=== PATIENT | male | born 1960 | race Caucasian/White ===

== ENCOUNTER 2017-08-25 04:51 | Outpatient (CLI) | payer MEDICARE, OTHER ==
[~2017-08-25 04:51] MED LIST: ASPI-1265 PO; ATOR10TA87 PO; FENO160T10 PO; FISH1CAP15 PO; FLAX100015 PO; FURO-150 PO; INSU100V37 SQ; IRBE150T51 PO; MAGN400C PO; METO50TA7 PO; PIOG30TA10 PO; POTA99TA25 PO; RIVA20TA PO; UMEC62.5 INH; VERA120T PO; VICTOZA SQ
== END 2017-08-25 23:59 | disposition home or self-care (01) ==
LOC: DIABETIC 04:51
PROVIDERS: ATTEND Internal Medicine
DX: E11.65 Type 2 diabetes mellitus with hyperglycemia (principal); E66.9 Obesity, unspecified
CPT/HCPCS: G0108

== ENCOUNTER 2017-11-17 10:44 | Inpatient (IN) | payer MEDICARE, OTHER ==
[~2017-11-17] VITALS: Ht 167.6 cm; Wt 103.5 kg
[2017-11-17] MEDS ORDERED: normal saline 1000ML IV soln IVB ONE ×2 (10:50)
[2017-11-17 11:15] LABS: CLARITY,URINE CLEAR (Clear); COLOR,URINE STRAW (Yellow); GLUCOSE, URINE >=1000 mg/dl (Neg); KETONES,URINE >=80 mg/dl (Neg); LEUKOCYTE ESTERASE ,URINE NEGATIVE (Neg); NITRITES, URINE NEGATIVE (Neg); OCCULT BLOOD,URINE SMALL (Neg); PH,URINE 5.5 (4.8-8.0); PROTEIN,URINE NEGATIVE (Neg); UROBILINOGEN,URINE 0.2 E.U/dL (0.2-1.0)
[2017-11-17 11:17] LABS: UA COLLECTION TYPE VOIDED
[2017-11-17 11:18] LABS: BASOPHILS # (AUTO) 0.1 X10'3 (0-0.2); BASOPHILS % (AUTO) 0.9 % (0-1); EOSINOPHILS % (AUTO) 0.1 % (0-6); HEMATOCRIT 46.2 % (42.0-52.0); HEMOGLOBIN 15.1 g/dl (14.0-17.9); LYMPHOCYTES # (AUTO) 1.2 X10'3 (1.1-4.8); LYMPHOCYTES % (AUTO) 9.8 % (21-51); MEAN CORPUSCULAR HEMOGLOBIN 27.7 PG (27.0-31.0); MEAN CORPUSCULAR HGB CONC 32.7 % (33.0-36.5); MEAN CORPUSCULAR VOLUME 84.6 FL (78-98); MEAN PLATELET VOLUME 8.8 FL (7.4-10.4); MONOCYTES # (AUTO) 0.5 X10'3 (0-0.9); MONOCYTES % (AUTO) 4.2 % (2-12); NEUTROPHILS # (AUTO) 10.8 X10'3 (1.8-7.7); PLATELET COUNT 336 X10'3 (140-440); RED BLOOD COUNT 5.47 X10'6 (4.70-6.10); RED CELL DISTRIBUTION WIDTH 14.4 % (11.5-14.5); WHITE BLOOD COUNT 12.6 X10'3 (4.5-11.0)
[2017-11-17 11:24] LABS: ALANINE AMINOTRANSFERASE 26 U/L (12-78); ALBUMIN 3.2 G/DL (3.4-5.0); ALBUMIN/GLOBULIN RATIO 0.7 (1.1-1.5); ALKALINE PHOSPHATASE 71 IU/L (46-116); ANION GAP 24 (8-16); ASPARTATE AMINO TRANSFERASE 11 U/L (10-37); BILIRUBIN,TOTAL 0.6 MG/DL (0.1-1.0); BLOOD UREA NITROGEN 33 MG/DL (7-18); BUN/CREATININE RATIO 21.6 (5.4-32.0); CALCIUM 10.3 MG/DL (8.5-10.1); CHLORIDE 94 MMOL/L (99-107); CREATININE 1.53 MG/DL (0.60-1.10); GLUCOSE 430 MG/DL (70-104); POTASSIUM 4.5 MMOL/L (3.5-5.1); SODIUM 129 MMOL/L (135-145); TOTAL PROTEIN 7.7 G/DL (6.4-8.2); TROPONIN I < 0.04 NG/ML (0.0-0.05); eGFR 47 ML/MIN
[2017-11-17 11:25] LABS: BACTERIA,URINE NONE SEEN /HPF (Neg); SQUAMOUS EPITHELIAL CELL,UR NONE SEEN /LPF (FEW); WBC,URINE NONE SEEN /HPF (0-4)
[2017-11-17] MEDS ORDERED: insulin regular, human 10 units/0.1 ml syringe IV ONE (11:30)
[2017-11-17] MEDS ORDERED: insulin regular, human inj. 100 UNITS in normal saline 100ml IV soln 100 ML IV SCH ×2 (12:25)
[2017-11-17] MEDS ORDERED: dextrose 50%-water 50ml dispensing syringe IV PRN (12:25)
[2017-11-17 12:46] LABS: ABG BASE EXCESS -16.8 mmol/L (-2.0-3.0); ABG HCO3 8.5 mmol/L (22.0-26.0); ABG PCO2 (T) 20.8 mmHg (35.0-48.0); ABG PO2 (T) 106.7 mmHg (83-108); ALLEN'S TEST Positive; FCOHb 0.8 % (0.5-1.5); FMetHb 0.1 % (0.3-1.12); FO2Hb 96.1 % (94-100); RESPIRATORY RATE (OBSERVED) 20 b/min; TOTAL HEMOGLOBIN 14.8 G/dl (14.0-18.0)
[2017-11-17] MEDS ORDERED: insulin Lispro (HumaLOG) vial - multi-dose SQ SCH (13:00)
[2017-11-17] MEDS ORDERED: insulin regular, human 10 units/0.1 ml syringe SQ ONE (14:10)
[2017-11-17] MEDS ORDERED: magnesium Cl slow-release 64mg tablet PO PRN (14:30)
[2017-11-17] MEDS ORDERED: K and/or MAG REPLACEMENT MC SCH (14:30)
[2017-11-17] MEDS ORDERED: magnesium 4gm in 100ml NS 100 ML IV PRN (14:30)
[2017-11-17] MEDS ORDERED: sodium phosphate inj. 30 MMOL in dextrose 5%-water 250 ML IV PRN (14:30)
[2017-11-17] MEDS ORDERED: mag hydrox/Alum hydrox/simeth 30ml oral suspension PO PRN (14:30)
[2017-11-17] MEDS ORDERED: diphenhydrAMINE 25mg capsule PO PRN (14:30)
[2017-11-17] MEDS ORDERED: ondansetron/PF 4mg/2ml inj IV PRN (14:30)
[2017-11-17] MEDS ORDERED: sodium bicarbonate (8.4%) inj. 100 MEQ in sodium chloride 0.45% 500ml 500 ML IV PRN (14:30)
[2017-11-17] MEDS ORDERED: insulin regular, human 10 units/0.1 ml syringe SQ PRN (14:30)
[2017-11-17] MEDS ORDERED: potassium Cl 20 mEq SR tablet PO PRN ×3 (14:30)
[2017-11-17] MEDS ORDERED: sodium bicarbonate (8.4%) inj. 50 MEQ in sodium chloride 0.45% 500ml 250 ML IV PRN (14:30)
[2017-11-17] MEDS ORDERED: magnesium hydroxide 30ml (MOM) UD suspension PO PRN (14:30)
[2017-11-17] MEDS ORDERED: Neutra Phos packet PO PRN (14:30)
[2017-11-17] MEDS ORDERED: sodium phosphate inj. 15 MMOL in dextrose 5%-water 150 ML IV PRN (14:30)
[2017-11-17] MEDS ORDERED: magnesium 1gm/100ml D5W IVPB 100 ML IV PRN (14:30)
[2017-11-17] MEDS ORDERED: potassium Cl 40MEQ/NS 500ml 500 ML IV PRN ×4 (14:30)
[2017-11-17] MEDS ORDERED: potassium CL 20mEq in D5-1/2NS 1,000 ML IV PRN (14:30)
[2017-11-17] MEDS ORDERED: acetaminophen 325mg tablet PO PRN ×2 (14:30)
[2017-11-17] MEDS: normal saline 1000ml 1,000 ML IV SCH ×3 (14:53→22:30)
[2017-11-17] MEDS: insulin regular, DKA only 100 UNIT in normal saline 100ml IV soln 99 ML IV SCH ×2 (14:55)
[2017-11-17] MEDS: ipratropium/albuterol 3ml nebule NEB SCH ×2 (15:00→20:05)
[2017-11-17 15:16] LABS: ALBUMIN 2.9 G/DL (3.4-5.0); ANION GAP 19 (8-16); BLOOD UREA NITROGEN 30 MG/DL (7-18); BUN/CREATININE RATIO 21.9 (5.4-32.0); CALCIUM 9.8 MG/DL (8.5-10.1); CHLORIDE 100 MMOL/L (99-107); CREATININE 1.37 MG/DL (0.60-1.10); GLUCOSE 312 MG/DL (70-104); PHOSPHORUS 2.7 MG/DL (2.3-4.5); POTASSIUM 3.4 MMOL/L (3.5-5.1); SODIUM 134 MMOL/L (135-145); eGFR 53 ML/MIN
[2017-11-17 15:23] LABS: TOTAL CARBON DIOXIDE 14.8 MMOL/L (24-32)
[2017-11-17 16:20] VITALS: BP 112/56
[2017-11-17] MEDS: potassium CL 20mEq in D5-1/2NS 1,000 ML IV SCH ×2 (17:36→23:05)
[2017-11-17 19:15] LABS: ALBUMIN 2.9 G/DL (3.4-5.0); ANION GAP 16 (8-16); BLOOD UREA NITROGEN 26 MG/DL (7-18); BUN/CREATININE RATIO 19.4 (5.4-32.0); CALCIUM 9.2 MG/DL (8.5-10.1); CHLORIDE 103 MMOL/L (99-107); CREATININE 1.34 MG/DL (0.60-1.10); GLUCOSE 194 MG/DL (70-104); PHOSPHORUS 1.9 MG/DL (2.3-4.5); POTASSIUM 3.6 MMOL/L (3.5-5.1); SODIUM 137 MMOL/L (135-145); TOTAL CARBON DIOXIDE 17.8 MMOL/L (24-32); eGFR 55 ML/MIN
[2017-11-17 19:37] VITALS: BP 124/61
[2017-11-17] MEDS ORDERED: FLAXSEED OIL PO SCH (20:00)
[2017-11-17 20:41] LABS: ANION GAP 16 (8-16); BLOOD UREA NITROGEN 21 MG/DL (7-18); BUN/CREATININE RATIO 17.1 (5.4-32.0); CALCIUM 9.6 MG/DL (8.5-10.1); CHLORIDE 103 MMOL/L (99-107); CREATININE 1.23 MG/DL (0.60-1.10); GLUCOSE 174 MG/DL (70-104); POTASSIUM 3.5 MMOL/L (3.5-5.1); SODIUM 137 MMOL/L (135-145); TOTAL CARBON DIOXIDE 18.2 MMOL/L (24-32); eGFR 60 ML/MIN
[2017-11-17] MEDS: losartan 50mg tablet PO SCH (20:56)
[2017-11-17] MEDS: metoprolol succinate 25mg (24-HOUR) SR. Tablet PO SCH (20:56)
[2017-11-17] MEDS: rivaroxaban 20mg tablet PO SCH (20:56)
[2017-11-17 23:00] VITALS: BP 92/48
[2017-11-17 23:14] LABS: ALBUMIN 3.2 G/DL (3.4-5.0); ANION GAP 19 (8-16); BLOOD UREA NITROGEN 20 MG/DL (7-18); BUN/CREATININE RATIO 15.5 (5.4-32.0); CALCIUM 9.6 MG/DL (8.5-10.1); CHLORIDE 101 MMOL/L (99-107); CREATININE 1.29 MG/DL (0.60-1.10); GLUCOSE 171 MG/DL (70-104); PHOSPHORUS 1.3 MG/DL (2.3-4.5); POTASSIUM 3.3 MMOL/L (3.5-5.1); SODIUM 137 MMOL/L (135-145); TOTAL CARBON DIOXIDE 17.5 MMOL/L (24-32); eGFR 57 ML/MIN
[2017-11-18] MEDS ORDERED: insulin R INFUSION 1 ML IV ONE (00:51)
[2017-11-18] MEDS: insulin regular, DKA only 100 UNIT in normal saline 100ml IV soln 99 ML IV SCH ×2 (01:01)
[2017-11-18 01:58] LABS: ALBUMIN 2.9 G/DL (3.4-5.0); ANION GAP 15 (8-16); BLOOD UREA NITROGEN 18 MG/DL (7-18); BUN/CREATININE RATIO 14.8 (5.4-32.0); CALCIUM 9.5 MG/DL (8.5-10.1); CHLORIDE 102 MMOL/L (99-107); CREATININE 1.22 MG/DL (0.60-1.10); GLUCOSE 161 MG/DL (70-104); POTASSIUM 3.4 MMOL/L (3.5-5.1); SODIUM 136 MMOL/L (135-145); TOTAL CARBON DIOXIDE 18.6 MMOL/L (24-32); eGFR 61 ML/MIN
[2017-11-18] MEDS: normal saline 1000ml 1,000 ML IV SCH ×4 (02:30→15:25)
[2017-11-18] MEDS: K and/or MAG REPLACEMENT MC SCH ×2 (02:41→08:00)
[2017-11-18 03:00] VITALS: BP 109/48
[2017-11-18] MEDS: ipratropium/albuterol 3ml nebule NEB SCH ×4 (03:49→20:31)
[2017-11-18 05:20] LABS: BASOPHILS % (AUTO) 0.4 % (0-1); EOSINOPHILS # (AUTO) 0.2 X10'3 (0-0.9); EOSINOPHILS % (AUTO) 2.8 % (0-6); HEMATOCRIT 41.1 % (42.0-52.0); HEMOGLOBIN 13.9 g/dl (14.0-17.9); LYMPHOCYTES # (AUTO) 1.7 X10'3 (1.1-4.8); LYMPHOCYTES % (AUTO) 24.1 % (21-51); MEAN CORPUSCULAR HEMOGLOBIN 28.4 PG (27.0-31.0); MEAN CORPUSCULAR HGB CONC 33.8 % (33.0-36.5); MEAN PLATELET VOLUME 8.5 FL (7.4-10.4); MONOCYTES # (AUTO) 0.4 X10'3 (0-0.9); MONOCYTES % (AUTO) 5.1 % (2-12); NEUTROPHILS # (AUTO) 4.8 X10'3 (1.8-7.7); NEUTROPHILS % (AUTO) 67.6 % (42-75); PLATELET COUNT 215 X10'3 (140-440); RED CELL DISTRIBUTION WIDTH 14.9 % (11.5-14.5); WHITE BLOOD COUNT 7.2 X10'3 (4.5-11.0)
[2017-11-18] MEDS: potassium CL 20mEq in D5-1/2NS 1,000 ML IV SCH (05:59)
[2017-11-18 06:00] VITALS: BP 91/58
[2017-11-18 06:08] LABS: ALANINE AMINOTRANSFERASE 19 U/L (12-78); ALBUMIN 2.7 G/DL (3.4-5.0); ALBUMIN/GLOBULIN RATIO 0.7 (1.1-1.5); ALKALINE PHOSPHATASE 52 IU/L (46-116); ANION GAP 15 (8-16); ASPARTATE AMINO TRANSFERASE 11 U/L (10-37); BILIRUBIN,TOTAL 0.5 MG/DL (0.1-1.0); BLOOD UREA NITROGEN 16 MG/DL (7-18); BUN/CREATININE RATIO 12.7 (5.4-32.0); CALCIUM 8.9 MG/DL (8.5-10.1); CHLORIDE 103 MMOL/L (99-107); CREATININE 1.26 MG/DL (0.60-1.10); GLUCOSE 166 MG/DL (70-104); MAGNESIUM 1.8 MG/DL (1.5-2.4); POTASSIUM 3.1 MMOL/L (3.5-5.1); SODIUM 138 MMOL/L (135-145); TOTAL CARBON DIOXIDE 19.7 MMOL/L (24-32); TOTAL PROTEIN 6.5 G/DL (6.4-8.2); eGFR 59 ML/MIN
[2017-11-18 06:15] LABS: PHOSPHORUS 1.2 MG/DL (2.3-4.5)
[2017-11-18] MEDS: atorvastatin 10mg tablet PO SCH (07:50)
[2017-11-18] MEDS: metoprolol succinate 25mg (24-HOUR) SR. Tablet PO SCH ×2 (07:50→19:34)
[2017-11-18] MEDS: aspirin 81mg tab.chew PO SCH (07:50)
[2017-11-18] MEDS: fenofibrate 145mg tablet PO SCH (07:50)
[2017-11-18] MEDS: furosemide 20MG tablet PO SCH (07:53)
[2017-11-18] MEDS: magnesium oxide 400mg tablet PO SCH (07:53)
[2017-11-18] MEDS: losartan 50mg tablet PO SCH ×2 (07:54→19:33)
[2017-11-18] MEDS: verapamil SR 120mg (sust. release) tab PO SCH (07:54)
[2017-11-18] MEDS ORDERED: potassium phosphate inj 30 MMOL in normal saline 500ml IV soln 490 ML IV ONE (09:25)
[2017-11-18 09:41] LABS: ALANINE AMINOTRANSFERASE 18 U/L (12-78); ALBUMIN 2.8 G/DL (3.4-5.0); ALBUMIN/GLOBULIN RATIO 0.7 (1.1-1.5); ALKALINE PHOSPHATASE 55 IU/L (46-116); ANION GAP 16 (8-16); ASPARTATE AMINO TRANSFERASE 13 U/L (10-37); BILIRUBIN,TOTAL 0.4 MG/DL (0.1-1.0); BLOOD UREA NITROGEN 12 MG/DL (7-18); BUN/CREATININE RATIO 10.5 (5.4-32.0); CALCIUM 8.7 MG/DL (8.5-10.1); CHLORIDE 102 MMOL/L (99-107); CREATININE 1.14 MG/DL (0.60-1.10); GLUCOSE 190 MG/DL (70-104); POTASSIUM 3.2 MMOL/L (3.5-5.1); SODIUM 137 MMOL/L (135-145); TOTAL CARBON DIOXIDE 19.3 MMOL/L (24-32); TOTAL PROTEIN 6.6 G/DL (6.4-8.2); eGFR 66 ML/MIN
[2017-11-18] MEDS ORDERED: glucagon, human recombinant 1mg kit SUBCUT PRN (10:25)
[2017-11-18] MEDS ORDERED: dextrose ORAL solution 15 GM/59 ML bottle PO PRN ×2 (10:25)
[2017-11-18] MEDS ORDERED: dextrose 50%-water 50ml dispensing syringe IV PRN ×2 (10:25)
[2017-11-18] MEDS ORDERED: MESSAGE TO PHARMACY PO ONE (10:25)
[2017-11-18] MEDS ORDERED: sodium phosphate inj. 30 MMOL in dextrose 5%-water 240 ML IV ONE (10:35)
[2017-11-18 11:00] VITALS: BP 101/46
[2017-11-18] MEDS: insulin Lispro (HumaLOG) vial - multi-dose SQ SCH ×4 (11:07→21:50)
[2017-11-18 15:00] VITALS: BP 108/57
[2017-11-18 19:00] VITALS: BP 125/49
[2017-11-18] MEDS ORDERED: ciprofloxacin lact 400MG/200ML 200 ML IV ONE (20:35)
[2017-11-18] MEDS ORDERED: insulin glargine (Lantus) pen - multi-dose SQ SCH (21:00)
[2017-11-18] MEDS: rivaroxaban 20mg tablet PO SCH (21:31)
[2017-11-18 23:00] VITALS: BP 121/56
[2017-11-18] MEDS ORDERED: iohexol 300mg/ml 100ml inj. ONE (23:28)
[2017-11-19] MEDS: metroNIDAZOLE-Flagyl 500mg/NS 100 ML IV SCH ×2 (00:29→07:17)
[2017-11-19 01:40] LABS: BASOPHILS % (AUTO) 0.8 % (0-1); EOSINOPHILS # (AUTO) 0.3 X10'3 (0-0.9); EOSINOPHILS % (AUTO) 5.3 % (0-6); HEMATOCRIT 40.8 % (42.0-52.0); HEMOGLOBIN 13.3 g/dl (14.0-17.9); LYMPHOCYTES # (AUTO) 2.1 X10'3 (1.1-4.8); MEAN CORPUSCULAR HEMOGLOBIN 27.2 PG (27.0-31.0); MEAN CORPUSCULAR HGB CONC 32.7 % (33.0-36.5); MEAN CORPUSCULAR VOLUME 83.3 FL (78-98); MEAN PLATELET VOLUME 8.7 FL (7.4-10.4); MONOCYTES # (AUTO) 0.4 X10'3 (0-0.9); MONOCYTES % (AUTO) 6.8 % (2-12); NEUTROPHILS # (AUTO) 3.4 X10'3 (1.8-7.7); NEUTROPHILS % (AUTO) 53.1 % (42-75); PLATELET COUNT 220 X10'3 (140-440); RED CELL DISTRIBUTION WIDTH 14.2 % (11.5-14.5); WHITE BLOOD COUNT 6.2 X10'3 (4.5-11.0)
[2017-11-19 01:54] LABS: ALANINE AMINOTRANSFERASE 18 U/L (12-78); ALBUMIN 2.6 G/DL (3.4-5.0); ALBUMIN/GLOBULIN RATIO 0.7 (1.1-1.5); ALKALINE PHOSPHATASE 91 IU/L (46-116); ANION GAP 16 (8-16); ASPARTATE AMINO TRANSFERASE 13 U/L (10-37); BILIRUBIN,TOTAL 0.3 MG/DL (0.1-1.0); BLOOD UREA NITROGEN 12 MG/DL (7-18); BUN/CREATININE RATIO 11.1 (5.4-32.0); CHLORIDE 100 MMOL/L (99-107); CREATININE 1.08 MG/DL (0.60-1.10); GLUCOSE 273 MG/DL (70-104); LIPASE 998 U/L (73-393); MAGNESIUM 1.7 MG/DL (1.5-2.4); PHOSPHORUS 2.8 MG/DL (2.3-4.5); POTASSIUM 3.2 MMOL/L (3.5-5.1); SODIUM 136 MMOL/L (135-145); TOTAL CARBON DIOXIDE 19.8 MMOL/L (24-32); TOTAL PROTEIN 6.3 G/DL (6.4-8.2); TRIGLYCERIDES 444 MG/DL (20-135); eGFR 70 ML/MIN
[2017-11-19 03:00] VITALS: BP 138/66
[2017-11-19] MEDS: potassium Cl 20 mEq SR tablet PO PRN ×3 (03:35→11:46)
[2017-11-19] MEDS: ipratropium/albuterol 3ml nebule NEB SCH ×4 (03:44→20:47)
[2017-11-19] MEDS: normal saline 1000ml 1,000 ML IV SCH (04:05)
[2017-11-19 07:06] VITALS: BP 106/53
[2017-11-19] MEDS: verapamil SR 120mg (sust. release) tab PO SCH (07:18)
[2017-11-19] MEDS: atorvastatin 10mg tablet PO SCH (07:19)
[2017-11-19] MEDS: aspirin 81mg tab.chew PO SCH (07:19)
[2017-11-19] MEDS: metoprolol succinate 25mg (24-HOUR) SR. Tablet PO SCH ×2 (07:19→20:00)
[2017-11-19] MEDS: furosemide 20MG tablet PO SCH (07:21)
[2017-11-19] MEDS: magnesium oxide 400mg tablet PO SCH (07:21)
[2017-11-19] MEDS: losartan 50mg tablet PO SCH ×2 (07:22→20:00)
[2017-11-19] MEDS: fenofibrate 145mg tablet PO SCH (07:22)
[2017-11-19] MEDS: K and/or MAG REPLACEMENT MC SCH (08:00)
[2017-11-19] MEDS ORDERED: ciprofloxacin lact 400MG/200ML 200 ML IV SCH (08:00)
[2017-11-19] MEDS: insulin Lispro (HumaLOG) vial - multi-dose SQ SCH ×2 (08:34→12:38)
[2017-11-19] MEDS: docusate sod 100mg capsule PO SCH ×2 (10:20→19:57)
[2017-11-19] MEDS ORDERED: morphine 2 MG/ML inj. syringe IV PRN (10:20)
[2017-11-19 11:00] VITALS: BP 127/59
[2017-11-19] MEDS: Potassium Cl inj 20 MEQ in normal saline 1000ml 990 ML IV SCH ×2 (11:52→21:00)
[2017-11-19 15:00] VITALS: BP 131/56
[2017-11-19 19:00] VITALS: BP 107/63
[2017-11-19] MEDS: rivaroxaban 20mg tablet PO SCH (20:00)
[2017-11-19] MEDS ORDERED: insulin glargine (Lantus) pen - multi-dose SQ SCH (21:00)
[2017-11-19 23:00] VITALS: BP 108/56
[2017-11-20 02:47] VITALS: BP 98/51
[2017-11-20] MEDS: ipratropium/albuterol 3ml nebule NEB SCH ×2 (03:00→10:18)
[2017-11-20 07:00] VITALS: BP 106/53
[2017-11-20] MEDS: aspirin 81mg tab.chew PO SCH (07:14)
[2017-11-20] MEDS: furosemide 20MG tablet PO SCH (07:15)
[2017-11-20] MEDS: metoprolol succinate 25mg (24-HOUR) SR. Tablet PO SCH (07:15)
[2017-11-20] MEDS: losartan 50mg tablet PO SCH (07:15)
[2017-11-20] MEDS: magnesium oxide 400mg tablet PO SCH (07:15)
[2017-11-20] MEDS: docusate sod 100mg capsule PO SCH (07:15)
[2017-11-20] MEDS: fenofibrate 145mg tablet PO SCH (07:16)
[2017-11-20] MEDS: atorvastatin 10mg tablet PO SCH (07:16)
[2017-11-20] MEDS: verapamil SR 120mg (sust. release) tab PO SCH (07:17)
[2017-11-20] MEDS: Potassium Cl inj 20 MEQ in normal saline 1000ml 990 ML IV SCH (07:21)
[2017-11-20] MEDS: K and/or MAG REPLACEMENT MC SCH (08:00)
[2017-11-20 09:27] LABS: ALANINE AMINOTRANSFERASE 25 U/L (12-78); ALBUMIN 3.2 G/DL (3.4-5.0); ALBUMIN/GLOBULIN RATIO 0.7 (1.1-1.5); ALKALINE PHOSPHATASE 64 IU/L (46-116); ANION GAP 18 (8-16); ASPARTATE AMINO TRANSFERASE 21 U/L (10-37); BILIRUBIN,TOTAL 0.4 MG/DL (0.1-1.0); BLOOD UREA NITROGEN 11 MG/DL (7-18); BUN/CREATININE RATIO 10.3 (5.4-32.0); CALCIUM 9.5 MG/DL (8.5-10.1); CHLORIDE 103 MMOL/L (99-107); CHOL/HDL RATIO 4.5 (0.00-4.99); CHOLESTEROL 183 MG/DL (0-200); CREATININE 1.07 MG/DL (0.60-1.10); GLUCOSE 195 MG/DL (70-104); HDL CHOLESTEROL 41 MG/DL (35-60); LDL CHOLESTEROL 109 MG/DL (50-100); LIPASE 804 U/L (73-393); MAGNESIUM 1.9 MG/DL (1.5-2.4); POTASSIUM 4.1 MMOL/L (3.5-5.1); SODIUM 142 MMOL/L (135-145); TOTAL PROTEIN 7.7 G/DL (6.4-8.2); TRIGLYCERIDES 213 MG/DL (20-135); eGFR 71 ML/MIN
[2017-11-20 11:00] VITALS: BP 120/57
[2017-11-20 11:13] LABS: BASOPHILS # (AUTO) 0.1 X10'3 (0-0.2); EOSINOPHILS # (AUTO) 0.3 X10'3 (0-0.9); EOSINOPHILS % (AUTO) 4.6 % (0-6); HEMATOCRIT 44.7 % (42.0-52.0); HEMOGLOBIN 14.9 g/dl (14.0-17.9); LYMPHOCYTES # (AUTO) 2.1 X10'3 (1.1-4.8); LYMPHOCYTES % (AUTO) 38.7 % (21-51); MEAN CORPUSCULAR HEMOGLOBIN 28.1 PG (27.0-31.0); MEAN CORPUSCULAR HGB CONC 33.3 % (33.0-36.5); MEAN CORPUSCULAR VOLUME 84.3 FL (78-98); MEAN PLATELET VOLUME 9.2 FL (7.4-10.4); MONOCYTES # (AUTO) 0.3 X10'3 (0-0.9); NEUTROPHILS # (AUTO) 2.7 X10'3 (1.8-7.7); NEUTROPHILS % (AUTO) 49.7 % (42-75); PLATELET COUNT 266 X10'3 (140-440); RED CELL DISTRIBUTION WIDTH 15.5 % (11.5-14.5); WHITE BLOOD COUNT 5.5 X10'3 (4.5-11.0)
[2017-11-20] MEDS: insulin Lispro (HumaLOG) vial - multi-dose SQ SCH (13:15)
[2017-11-20] MEDS ORDERED: LANTUS SQ (13:34)
[2017-11-20] MEDS ORDERED: INSU100V11 SQ (13:34)
== END 2017-11-20 15:25 | disposition home or self-care (01) | DRG 682 ==
LOC: ER 10:45 → ED HOLD 14:20 → PCU 3S 16:19
PROVIDERS: ADMIT Family Medicine; ATTEND Internal Medicine
PROC: BW211ZZ Computerized Tomography (CT Scan) of Abdomen and Pelvis using Low Osmolar Contrast (ICD-10-PCS; principal; 2017-11-18)
DX: N17.9 Acute kidney failure, unspecified (principal); E11.10 Type 2 diabetes mellitus with ketoacidosis without coma; K85.90 Acute pancreatitis without necrosis or infection, unspecified; E87.1 Hypo-osmolality and hyponatremia; I48.91 Unspecified atrial fibrillation; E66.9 Obesity, unspecified; E78.5 Hyperlipidemia, unspecified; E86.0 Dehydration; I10 Essential (primary) hypertension; E83.39 Other disorders of phosphorus metabolism; K57.90 Diverticulosis of intestine, part unspecified, without perforation or abscess without bleeding; I25.10 Atherosclerotic heart disease of native coronary artery without angina pectoris; K59.00 Constipation, unspecified; E87.6 Hypokalemia; Z96.643 Presence of artificial hip joint, bilateral; Z89.519 Acquired absence of unspecified leg below knee; Z91.14 Patient's other noncompliance with medication regimen; Z91.19 Patient's noncompliance with other medical treatment and regimen; Z95.5 Presence of coronary angioplasty implant and graft; Z98.42 Cataract extraction status, left eye; Z98.41 Cataract extraction status, right eye; Z88.5 Allergy status to narcotic agent; Z91.010 Allergy to peanuts; Z88.8 Allergy status to other drugs, medicaments and biological substances; Z91.018 Allergy to other foods; Z79.899 Other long term (current) drug therapy; Z79.4 Long term (current) use of insulin; Z85.820 Personal history of malignant melanoma of skin; Z81.1 Family history of alcohol abuse and dependence; Z82.49 Family history of ischemic heart disease and other diseases of the circulatory system; Z80.0 Family history of malignant neoplasm of digestive organs; Z68.36 Body mass index [BMI] 36.0-36.9, adult
CPT/HCPCS: 36415; 36600; 71045; 71046; 74178; 80048; 80053; 80061; 81001; 82803; 82948; 83036; 83690; 83735; 84100; 84478; 84484; 85018; 85025; 87070; 93005; 94640; 94760; 96361; 96372; 96374; 96376; 99285; J0744; J1815; J3480; J3490; J7030; J7060; Q9967

== ENCOUNTER 2017-12-08 02:06 | Outpatient (CLI) | payer MEDICARE, OTHER ==
[~2017-12-08 02:06] MED LIST changes: -FISH1CAP15 PO; +INSU100V11 SQ; -INSU100V37 SQ; +LANTUS SQ; -PIOG30TA10 PO; -VICTOZA SQ
== END 2017-12-08 23:59 | disposition home or self-care (01) ==
LOC: DIABETIC 02:06
PROVIDERS: ATTEND Internal Medicine
DX: E11.9 Type 2 diabetes mellitus without complications (principal); E66.9 Obesity, unspecified; I10 Essential (primary) hypertension; K85.90 Acute pancreatitis without necrosis or infection, unspecified; F10.10 Alcohol abuse, uncomplicated; Z79.82 Long term (current) use of aspirin; Z79.899 Other long term (current) drug therapy; Z96.643 Presence of artificial hip joint, bilateral
CPT/HCPCS: G0108

== ENCOUNTER 2018-05-18 05:10 | Outpatient (CLI) | payer MEDICARE, OTHER | END 2018-05-18 23:59 | disposition home or self-care (01) | LOC: DIABETIC 05:10 | PROVIDERS: ATTEND Specialist | DX: Z71.3 Dietary counseling and surveillance (principal); E11.9 Type 2 diabetes mellitus without complications | CPT/HCPCS: G0108 ==

== ENCOUNTER 2018-08-18 00:56 | Outpatient (CLI) | payer MEDICARE, OTHER | END 2018-08-18 23:59 | disposition home or self-care (01) | LOC: DIABETIC 00:56 | PROVIDERS: ATTEND Specialist | DX: E11.65 Type 2 diabetes mellitus with hyperglycemia (principal); I25.2 Old myocardial infarction; I10 Essential (primary) hypertension; E11.9 Type 2 diabetes mellitus without complications; Z96.643 Presence of artificial hip joint, bilateral; Z91.010 Allergy to peanuts; Z91.018 Allergy to other foods; Z88.8 Allergy status to other drugs, medicaments and biological substances; Z79.4 Long term (current) use of insulin | CPT/HCPCS: G0108 ==

== ENCOUNTER 2018-11-17 01:02 | Outpatient (CLI) | payer MEDICARE, OTHER | END 2018-11-17 23:59 | disposition home or self-care (01) | LOC: DIABETIC 01:02 | PROVIDERS: ATTEND Specialist | DX: E11.9 Type 2 diabetes mellitus without complications (principal); Z71.3 Dietary counseling and surveillance | CPT/HCPCS: G0108 ==

== ENCOUNTER 2018-12-21 03:50 | Outpatient (CLI) | payer MEDICARE, OTHER | END 2018-12-21 23:59 | disposition home or self-care (01) | LOC: DIABETIC 03:50 | PROVIDERS: ATTEND Internal Medicine Cardiovascular Disease | DX: E11.65 Type 2 diabetes mellitus with hyperglycemia (principal); I10 Essential (primary) hypertension; Z79.82 Long term (current) use of aspirin; Z79.02 Long term (current) use of antithrombotics/antiplatelets; Z79.899 Other long term (current) drug therapy; Z79.84 Long term (current) use of oral hypoglycemic drugs | CPT/HCPCS: G0108 ==

== ENCOUNTER 2019-03-22 04:10 | Outpatient (CLI) | payer MEDICARE, OTHER | END 2019-03-22 23:59 | disposition home or self-care (01) | LOC: DIABETIC 04:10 | PROVIDERS: ATTEND Internal Medicine Cardiovascular Disease | DX: E11.65 Type 2 diabetes mellitus with hyperglycemia (principal); I10 Essential (primary) hypertension; Z79.899 Other long term (current) drug therapy; Z79.4 Long term (current) use of insulin; Z95.5 Presence of coronary angioplasty implant and graft | CPT/HCPCS: G0108 ==

== ENCOUNTER 2019-06-21 00:32 | Outpatient (CLI) | payer MEDICARE, OTHER | END 2019-06-21 23:59 | disposition home or self-care (01) | LOC: DIABETIC 00:32 | PROVIDERS: ATTEND Internal Medicine Cardiovascular Disease | DX: E11.65 Type 2 diabetes mellitus with hyperglycemia (principal) | CPT/HCPCS: G0108 ==

== ENCOUNTER 2020-03-21 05:45 | Day surgery (SDC) | payer MEDICARE, OTHER ==
[2020-03-20 12:23] LABS: BASOPHILS # (AUTO) 0.1 X10'3 (0-0.2); BASOPHILS % (AUTO) 1.1 % (0-1); EOSINOPHILS # (AUTO) 0.3 X10'3 (0-0.9); EOSINOPHILS % (AUTO) 3.5 % (0-6); HEMATOCRIT 44.4 % (42.0-52.0); HEMOGLOBIN 14.7 g/dl (14.0-17.9); LYMPHOCYTES # (AUTO) 2.3 X10'3 (1.1-4.8); LYMPHOCYTES % (AUTO) 25.3 % (21-51); MEAN CORPUSCULAR HEMOGLOBIN 28.6 PG (27.0-31.0); MEAN CORPUSCULAR HGB CONC 33.2 g/dL (33.0-36.5); MEAN CORPUSCULAR VOLUME 86.1 FL (78-98); MEAN PLATELET VOLUME 8.4 FL (7.4-10.4); MONOCYTES # (AUTO) 0.7 X10'3 (0-0.9); MONOCYTES % (AUTO) 8.3 % (2-12); NEUTROPHILS # (AUTO) 5.6 X10'3 (1.8-7.7); NEUTROPHILS % (AUTO) 61.8 % (42-75); PLATELET COUNT 340 X10'3 (140-440); RED BLOOD COUNT 5.15 X10'6 (4.70-6.10); RED CELL DISTRIBUTION WIDTH 15.1 % (11.5-14.5); WHITE BLOOD COUNT 9.1 X10'3 (4.5-11.0)
[2020-03-20 12:30] LABS: ALBUMIN 4.1 G/DL (3.4-5.0); ANION GAP 12 (8-16); BLOOD UREA NITROGEN 22 MG/DL (7-18); BUN/CREATININE RATIO 23.9 (5.4-32.0); CALCIUM 9.7 MG/DL (8.5-10.1); CHLORIDE 103 MMOL/L (99-107); CREATININE 0.92 MG/DL (0.60-1.10); GLUCOSE 215 MG/DL (70-104); POTASSIUM 4.2 MMOL/L (3.5-5.1); SODIUM 141 MMOL/L (135-145); TOTAL CARBON DIOXIDE 26.5 MMOL/L (24-32); eGFR 84 ML/MIN
[2020-03-20 12:33] LABS: PARTIAL THROMBOPLASTIN TIME 25 SECONDS (22-32)
[~2020-03-21] VITALS: Ht 167.6 cm; Wt 126.5 kg
[2020-03-21] VITALS (14 sets, daily range): BP systolic 116–158; BP diastolic 48–101
[2020-03-21] MEDS ORDERED: LORazepam 0.5 MG tablet PO PRN (06:00)
[2020-03-21] MEDS ORDERED: diphenhydrAMINE 25mg capsule PO PRN (06:00)
[2020-03-21] MEDS ORDERED: LIDOcaine/PRILOcaine 5gm cream TP ONE (06:00)
[2020-03-21] MEDS ORDERED: normal saline 1,000 ML IV SCH (06:00)
[2020-03-21] MEDS ORDERED: INSU100V13 SQ (06:27)
[2020-03-21] MEDS ORDERED: EMPA25TA PO (06:27)
[2020-03-21] MEDS ORDERED: FURO40TA4 PO (06:27)
[2020-03-21] MEDS ORDERED: FENO145T38 PO (06:27)
[2020-03-21] MEDS ORDERED: MAGN250T2 PO (06:27)
[2020-03-21] MEDS ORDERED: NIA500ERT PO (06:27)
[2020-03-21] MEDS ORDERED: ALIR75PE SQ (06:27)
[2020-03-21] MEDS ORDERED: LOSA50TA3 PO (06:27)
[2020-03-21] MEDS ORDERED: INSU100V41 (06:27)
[2020-03-21] MEDS ORDERED: verapamil 2.5 mg/ml inj IV ONE (07:26)
[2020-03-21] MEDS ORDERED: midazolam 2 mg/2 ml injection ONE ×2 (07:27→09:00)
[2020-03-21] MEDS ORDERED: LIDOcaine 1% (10mg/ml)w/preservative injection 20ml MDV ONE (07:27)
[2020-03-21] MEDS ORDERED: iohexol 350MG/ML 100ml bottle IV ONE (07:27)
[2020-03-21] MEDS ORDERED: heparin 1,000unit/ml 10ml vial 10 ML ONE ×2 (07:27→09:41)
[2020-03-21] MEDS ORDERED: nitroGLYCERIN-Tridil 50MG/D5W 250 ML IV ONE (07:27)
[2020-03-21] MEDS ORDERED: fentaNYL/PF 50MCG/1 ML 2ML syringe ONE (07:27)
[2020-03-21] MEDS ORDERED: iohexol 350 MG/ML 50ML vial IV ONE (07:27)
[2020-03-21 08:41] LABS: ISTAT HGB ART 13.9 g/dl (14.0-18.0); ISTAT Hct ART 41 %PCV (42-52); ISTAT O2 SATURATION ARTERIAL 97 % (95-98); ISTAT SOURCE ART
[2020-03-21] MEDS ORDERED: heparin 25,000 UNIT/250ml bag 250 ML IV ONE (08:47)
[2020-03-21] MEDS ORDERED: iohexol 350 MG/1 ML 200ml bottle ONE (08:48)
[2020-03-21] MEDS ORDERED: heparin 1,000 UNITS/NS 500ml 500 ML ONE (09:18)
[2020-03-21] MEDS ORDERED: HYDROmorphone 1 mg/ml syringe ONE (09:37)
[2020-03-21] MEDS ORDERED: clopidogrel 300mg tablet ONE (09:55)
[2020-03-21] MEDS ORDERED: normal saline 1000ml 1,000 ML IV SCH (10:45)
--- NOTE | 2020-03-21 14:30 | NUR ---
RECEIVED REPORT AND PT FROM JAYLEEN RN, PT VASCULAR BAND OFF AND DRSG ALREADY APPLIED, PT RESTING AND AWAITING D/C HOME. VS AND SITE REMAIN STABLE. Addendum: 03/21/20 at 1632 by Bre Zhang RN Amended: Links added.
== END 2020-03-21 18:45 | disposition home or self-care (01) ==
LOC: SSTAY O 05:45
PROVIDERS: ATTEND Internal Medicine Cardiovascular Disease
DX: R94.39 Abnormal result of other cardiovascular function study (principal); R07.89 Other chest pain; I25.10 Atherosclerotic heart disease of native coronary artery without angina pectoris; E11.9 Type 2 diabetes mellitus without complications; E78.5 Hyperlipidemia, unspecified; I11.0 Hypertensive heart disease with heart failure; I50.9 Heart failure, unspecified; I49.5 Sick sinus syndrome; I48.91 Unspecified atrial fibrillation; G47.30 Sleep apnea, unspecified; Z95.5 Presence of coronary angioplasty implant and graft; Z79.899 Other long term (current) drug therapy; Z79.01 Long term (current) use of anticoagulants
CPT/HCPCS: 36415; 80048; 82803; 85014; 85025; 85347; 85610; 85730; 93005; 93460; 99152; 99153; C1725; C1751; C1769; C1874; C1894; C9600; J1170; J1644; J2001; J2250; J3010; J7030; Q0163; Q9967; A4620; A5120; J3490

== ENCOUNTER 2021-09-17 10:06 | Outpatient (CLI) | payer MEDICARE, OTHER, MEDICAID ==
[~2021-09-17 10:06] MED LIST changes: +ALIR75PE5 SQ; -ATOR10TA87 PO; +EMPA25TA PO; +FENO145T38 PO; -FENO160T10 PO; -FLAX100015 PO; -FURO-150 PO; +FURO40TA4 PO; -INSU100V11 SQ; +INSU100V13 SQ; +INSU100V41; -IRBE150T51 PO; -LANTUS SQ; +LOSA50TA3 PO; +MAGN250T35 PO; -MAGN400C PO; +NIA500ERT PO
[2021-09-17 11:14] LABS: HEMOGLOBIN A1C 7.3 % (4.5-6.2)
[2021-09-17 11:24] LABS: ALANINE AMINOTRANSFERASE 54 U/L (12-78); ALBUMIN 3.7 G/DL (3.4-5.0); ALBUMIN/GLOBULIN RATIO 0.8 (1.1-1.5); ALKALINE PHOSPHATASE 50 IU/L (46-116); ANION GAP 11 (8-16); ASPARTATE AMINO TRANSFERASE 38 U/L (10-37); BILIRUBIN,TOTAL 0.4 MG/DL (0.1-1.0); BLOOD UREA NITROGEN 22 MG/DL (7-18); BUN/CREATININE RATIO 27.8 (5.4-32.0); CALCIUM 9.7 MG/DL (8.5-10.1); CHLORIDE 107 MMOL/L (99-107); CREATININE 0.79 MG/DL (0.60-1.10); GLUCOSE 90 MG/DL (70-104); POTASSIUM 4.2 MMOL/L (3.5-5.1); SODIUM 142 MMOL/L (135-145); TOTAL CARBON DIOXIDE 24.3 MMOL/L (24-32); TOTAL PROTEIN 8.2 G/DL (6.4-8.2); eGFR > 90 ML/MIN
[2021-09-18] MEDS ORDERED: VALS160T30 PO (06:32)
[2021-09-18] MEDS ORDERED: INSU200I4 SQ (06:32)
[2021-09-18] MEDS ORDERED: NORT25CA PO (06:32)
[2021-09-18] MEDS ORDERED: METO50TA16 PO (06:32)
[2021-09-18] MEDS ORDERED: CLOP75TA34 PO (06:32)
[2021-09-18] MEDS ORDERED: VERA180C3 PO (06:33)
[2021-09-18] MEDS ORDERED: TRAM50TA2 PO (06:33)
[2021-09-18] MEDS ORDERED: CALC-1215 PO (06:39)
[2021-09-18] MEDS ORDERED: MAGN400C PO (06:39)
[2021-09-18] MEDS ORDERED: ASCO500C17 PO (06:39)
[2021-09-18] MEDS ORDERED: Fish Oil PO (06:39)
== END 2021-09-17 23:59 | disposition home or self-care (01) ==
LOC: LAB 10:06
PROVIDERS: ATTEND Specialist
DX: E11.65 Type 2 diabetes mellitus with hyperglycemia (principal)
CPT/HCPCS: 36415; 80053; 83036

== ENCOUNTER 2021-09-18 05:32 | Day surgery (SDC) | payer MEDICARE, OTHER, MEDICAID ==
[2021-09-17 10:59] LABS: BASOPHILS # (AUTO) 0.2 X10'3 (0-0.2); BASOPHILS % (AUTO) 1.9 % (0-1); EOSINOPHILS # (AUTO) 0.5 X10'3 (0-0.9); EOSINOPHILS % (AUTO) 4.6 % (0-6); HEMATOCRIT 44.9 % (42.0-52.0); HEMOGLOBIN 14.7 g/dl (14.0-17.9); LYMPHOCYTES # (AUTO) 2.4 X10'3 (1.1-4.8); MEAN CORPUSCULAR HEMOGLOBIN 25.6 PG (27.0-31.0); MEAN CORPUSCULAR HGB CONC 32.7 g/dL (33.0-36.5); MEAN CORPUSCULAR VOLUME 78.4 FL (78-98); MEAN PLATELET VOLUME 7.3 FL (7.4-10.4); MONOCYTES # (AUTO) 0.8 X10'3 (0-0.9); MONOCYTES % (AUTO) 7.4 % (2-12); NEUTROPHILS # (AUTO) 6.7 X10'3 (1.8-7.7); NEUTROPHILS % (AUTO) 63.1 % (42-75); PLATELET COUNT 404 X10'3 (140-440); RED BLOOD COUNT 5.73 X10'6 (4.70-6.10); RED CELL DISTRIBUTION WIDTH 18.5 % (11.5-14.5); WHITE BLOOD COUNT 10.6 X10'3 (4.5-11.0)
[2021-09-17 11:12] LABS: APTT 26 SECONDS (22-32)
[2021-09-17 11:13] LABS: ALBUMIN 3.9 G/DL (3.4-5.0); ANION GAP 10 (8-16); BLOOD UREA NITROGEN 22 MG/DL (7-18); BUN/CREATININE RATIO 27.5 (5.4-32.0); CHLORIDE 106 MMOL/L (99-107); GLUCOSE 93 MG/DL (70-104); POTASSIUM 4.1 MMOL/L (3.5-5.1); SODIUM 141 MMOL/L (135-145); TOTAL CARBON DIOXIDE 24.8 MMOL/L (24-32); eGFR > 90 ML/MIN
[2021-09-18] VITALS (11 sets, daily range): BP systolic 108–175; BP diastolic 53–88
[~2021-09-18] VITALS: Ht 167.6 cm; Wt 117.9 kg
[2021-09-18] MEDS ORDERED: normal saline 1,000 ML IV SCH ×2 (06:10→06:45)
[2021-09-18] MEDS ORDERED: diphenhydrAMINE 25mg capsule PO PRN ×2 (06:10→06:45)
[2021-09-18] MEDS ORDERED: LORazepam 0.5 MG tablet PO PRN ×2 (06:10→06:45)
[2021-09-18] MEDS ORDERED: VALS160T30 PO (06:32)
[2021-09-18] MEDS ORDERED: METO50TA16 PO (06:32)
[2021-09-18] MEDS ORDERED: NORT25CA PO (06:32)
[2021-09-18] MEDS ORDERED: CLOP75TA34 PO (06:32)
[2021-09-18] MEDS ORDERED: INSU200I4 SQ (06:32)
[2021-09-18] MEDS ORDERED: VERA180C3 PO (06:33)
[2021-09-18] MEDS ORDERED: TRAM50TA2 PO (06:33)
[2021-09-18] MEDS ORDERED: Fish Oil PO (06:39)
[2021-09-18] MEDS ORDERED: CALC-1215 PO (06:39)
[2021-09-18] MEDS ORDERED: ASCO500C17 PO (06:39)
[2021-09-18] MEDS ORDERED: MAGN400C PO (06:39)
[2021-09-18] MEDS ORDERED: LIDOcaine/PRILOcaine 5gm cream TP ONE (06:45)
--- NOTE | 2021-09-18 07:00 | NUR ---
Pt refused finger poke to check BS. Pt is wearing a BS monitor. Monitor currently reading 137. Pt states he would like his monitor to stay close to him during the procedure to reduce the need for "finger sticks". Note left on chart.
[2021-09-18] MEDS ORDERED: fentaNYL/PF 50MCG/1 ML 2ML syringe ONE (07:22)
[2021-09-18] MEDS ORDERED: iohexol 350 MG/1 ML 200ml bottle ONE (07:22)
[2021-09-18] MEDS ORDERED: midazolam 1 mg/ML 2ml injection ONE (07:22)
[2021-09-18] MEDS ORDERED: nitroGLYCERIN-Tridil 50MG/D5W 250 ML IV ONE (07:23)
[2021-09-18] MEDS ORDERED: iohexol 350 MG/ML 50ML vial IV ONE (07:23)
[2021-09-18] MEDS ORDERED: verapamil 2.5 mg/ml inj IV ONE (07:23)
[2021-09-18] MEDS ORDERED: heparin 1,000unit/ml 10ml vial 10 ML ONE (07:23)
[2021-09-18] MEDS ORDERED: LIDOCAINE 1% w/preservative (10 MG/ML) inj. 10mL VIAL ONE (07:26)
[2021-09-18] MEDS ORDERED: normal saline 1000ml 1,000 ML IV SCH (09:20)
--- NOTE | 2021-09-18 10:11 | NUR ---
Pt sitting up in bed. Eating breakfast. Appears comfortable. Denies cp, denies sob. Pt site stable. Continuing to release air from right vascular band. VS stable as charted.
--- NOTE | 2021-09-18 13:00 | NUR ---
Pt ambulated to bathroom, voided. Pt site stable. DRSG CD&I, no s/s of bleeding or infection. Pt vs stable as charted. Denies cp or sob, "no more than usual". Will continue to monitor.
--- NOTE | 2021-09-18 13:19 | NUR ---
Pt sitting up in bed eating lunch tray. 500ml oral fluid intake.
--- NOTE | 2021-09-18 13:33 | NUR ---
Spoke with patient's transportation. Confirmed pt discharge time. Ride states they will be here at 1500.
== END 2021-09-18 14:45 | disposition home or self-care (01) ==
LOC: SSTAY O 05:32
PROVIDERS: ATTEND Internal Medicine Cardiovascular Disease
DX: R94.39 Abnormal result of other cardiovascular function study (principal); T82.855A Stenosis of coronary artery stent, initial encounter; I25.10 Atherosclerotic heart disease of native coronary artery without angina pectoris; I10 Essential (primary) hypertension; E11.9 Type 2 diabetes mellitus without complications; E78.5 Hyperlipidemia, unspecified; E66.9 Obesity, unspecified; Z68.41 Body mass index [BMI] 40.0-44.9, adult; Z88.8 Allergy status to other drugs, medicaments and biological substances; Z91.010 Allergy to peanuts; Z91.018 Allergy to other foods; Z95.5 Presence of coronary angioplasty implant and graft; Y83.8 Other surgical procedures as the cause of abnormal reaction of the patient, or of later complication, without mention of misadventure at the time of the procedure; Y92.89 Other specified places as the place of occurrence of the external cause
CPT/HCPCS: 36415; 76937; 80048; 85025; 85610; 85730; 93005; 93458; 99152; 99153; C1769; C1894; J1644; J2250; J3010; J3490; J7030; Q9967; A4620; A6258